=== PATIENT | female | born 1945 | race Caucasian/White ===

== ENCOUNTER 2020-04-15 14:22 | Emergency (ER) | payer MEDICARE, BC, SELFPAY ==
[2020-04-15 14:23] VITALS: BP 186/97; PULSE 76; RESP 18; TEMP 37.2; O2SAT 93; BMI 23.3
[2020-04-15 14:37] VITALS: PULSE 79; RESP 20; O2SAT 94
--- NOTE | 2020-04-15 15:08 | CT_ITS ---
WS: [id number] CT HEAD TECHNIQUE: Noncontrast CT of the head obtained from the skullbase to the vertex. CLINICAL INFORMATION: AMS COMPARISON: None. DLP: 763.[address] scans at [facility] use at least one of these dose optimization techniques: automat ed exposure control; mA and/or kV adjustment per patient size (includes targeted exams where dose is matched to clinical indication); or iterative reconstruction. FINDINGS: Small amount of serpiginous high attenuation hemorrhage overlying the left parasagittal frontal lobe measuring 7 mm. Moderate to advanced small vessel changes with moderate parenchymal volume loss. Multiple chronic lac unar infarcts involving the periventricular white matter, mcfadden radiata, bilateral caudate and thala mi. Chronic lacunar infarcts in the basal ganglia bilaterally. Chronic lacunar infarcts in the cerebe llum bilaterally. Paranasal sinuses are well aerated. 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 Subcutaneou s edema with scalp hematoma overlying the right frontal bone. No visualized fractures. CT/CT head wo con* [id number] IMPRESSION: 1. Small amount of acute high attenuation serpiginous hemorrhage overlying the parasagittal left frontal lobe. No mass effect. 2. No hydrocephalus. 3. Moderate to advanced small vessel changes moderate parenchymal volume loss. 4. Numerous chronic appearing lacunar infarcts described above. 5. Right frontal scalp hematoma. No visualized fractures. Notified Isidro Baker DO at 04/15/2020 4:10 PM.
--- NOTE | 2020-04-15 15:08 | XRR_ITS ---
PROCEDURE INFORMATION: Exam: XR Chest, 1 View Exam date and time: 04/15/2020 3:48 PM Age: 74 years old Clinical indication: Cough and dyspnea; Additional info: Dyspnea/cough TECHNIQUE: Imaging protocol: XR of the chest Views: Frontal portable upright view of the chest. COMPARISON: CR XR chest 2V* [id number] 03/31/2020 12:08 PM FINDINGS: Lungs: Lateral left mid lung zone subsegmental atelectasis. Improved bibasilar pulmonary subsegmental atelectasis. The lungs are otherwise peripherally clear bilaterally. The pulmonary vasculature is stable. Coarse bilateral central pulmonary markings with mild architectural distortion. Pleural space: No pleural effusion. No pneumothorax. Heart/Mediastinum: Stable mild cardiomegaly. Mediastinum: Stable. Bones/joints: Stable. XR/XR chest 1V portable [id number] IMPRESSION: 1. Lateral left mid lung zone subsegmental atelectasis. 2. Improved bibasilar pulmonary subsegmental atelectasis.
--- NOTE | 2020-04-15 15:08 | ECG_ITS ---
[facility] Test Date: 2020-04-15 Pat Name: Nichole Schmitt Department: Room: Gender: Female Warm In Worker: : 1945 Requested By: Isidro Chapa Order Number: [id number] Jay MD: Jenna Schilling M.D. Measurements Intervals [place] Rate: 79 P: 65 HI: 175 QRS: 34 QRSD: 77 T: 49 QT: 409 QTc: 470 Interpretive Statements SINUS RHYTHM POSSIBLE LEFT ATRIAL ENLARGEMENT [-0.1mV P WAVE IN V1/V2] SEPTAL MYOCARDIAL INFARCTION , PROBABLY OLD [40+ ms Q WAVE IN V1/V2] No previous ECG available for comparison Electronically Signed On 04-16-2020 17:12:56 CDT by Jenna Schilling M.D. [id number]
--- NOTE | 2020-04-15 15:11 | ED_ITS ---
Documented by User: Isidro Baker DO 04/19/20 07:48 HPI - Altered Mental Status General: Chief Complaint: Altered Mental Status Stated Complaint: CONFUSION Time Seen by Provider: 04/15/20 14:30 History of Present Illness: HPI narrative: 74-year-old female presents emergency room with altered mental status multiple falls. She fell on March 12 at her home after being tripped up by a leash of a dog. She was not evaluated after this. Friend is here with her in the emergency room today say that since then she has been increasingly altered had personality changes and behavioral change this morning she had bruising on the right yazdanism and the right eye which this is new from last night although does have a few shades to his of it may be couple of days old. Additionally they report that the patient has stopped all of her medications sometimes recently. She does have a power of lpn is in [place] has a nephew is not able to be here at this time. Patient is able to answer questions but most of them just yes or no she denies shortness of breath denies chest pain denies any pain anywhere. MD complaint: altered mental status and confusion Onset (ago): hour(s) Timing confirmed by: caregiver Severity: moderate Consistency of symptoms: Getting Worse Context: trauma (Fall) Associated symptoms: Deny auditory hallucinations, visual hallucinations, delusions, depression, homicidal ideation, racing thoughts or suicidal ideation Review of Systems Const: Denies: fever(s), chills, body aches, change in appetite, fatigue or malaise ENMT: Denies: throat pain, ear or mastoid pain, nasal discharge or nasal congestion Card: Denies: chest pain, edema, dyspnea on exertion or orthopnea Resp: Denies: dyspnea, productive cough or non-productive cough GI: Denies: abdominal pain, nausea, vomiting, hematemesis, coffee ground emesis, diarrhea, constipation, bloating, hematochezia or melena : Denies: flank pain, difficulty voiding, dysuria, urinary frequency or urinary urgency Skin/Breast: Denies: rash or pruritus Psych: Denies: depression, visual hallucinations, auditory hallucinations, suicidal ideation or homicidal ideation [facility] ED PFSH: Medical History (Updated 04/15/20 @ 18:36 by Cristina Fay) Hypertension Physical Exam Const: COMMON NORMALS: no acute distress GENERAL APPEARANCE: cooperative and comfortable HENMT: COMMON NORMALS: hearing grossly normal bilaterally, external ears normal, EAC's normal, TM's normal bilaterally, Normal nasal mucous membranes and turbinates present, moist oral mucous membranes and oropharynx normal NOSE: Normal nasal mucous membranes and turbinates present EXTERNAL EAR: Yes external ears normal EXTERNAL AUDITORY CANAL: EAC's normal TYMPANIC MEMBRANE: TM's normal bilaterally OTHER: Large amount of ecchymosis on the right yazdanism and the right eye no step-offs with palpation of the orbital ridge extraocular movements intact Eye: COMMON NORMALS: Equal, round and reactive pupils present, EOMs intact bilaterally, conjunctivae normal and no scleral icterus CONJUNCTIVA: Yes conjunctivae normal PUPIL: Yes Equal, round and reactive pupils present Neck/C-Spine: COMMON NORMALS: full ROM, no lymphadenopathy, supple and no JVD Lymph: LYMPHATIC: no lymphadenopathy noted and no lymphedema noted Resp: COMMON NORMALS: normal respiratory effort, No retractions, No use of accessory muscles and clear to auscultation bilaterally AUSCULTATION: clear to auscultation bilaterally Cardio: COMMON NORMALS: no JVD, regular rate, regular rhythm and No murmurs present (Cardio) RATE: regular rate RHYTHM: regular rhythm GI: COMMON NORMALS: Soft to palpation and No hepatosplenomegaly present AUSCULTATION: Yes normoactive bowel sounds PALPATION: Yes Soft to palpation, No Tenderness to palpation present (GI), No Guarding due to palpation present (GI) and Yes No hepatosplenomegaly present Extremity: COMMON NORMALS: normal to inspection, capillary refill normal, no clubbing, cyanosis or edema, no calf tenderness and no pedal edema Neuro: FABIAN COMA SCALE: document GCS findings Marianna coma scale eye opening: Spontaneous Marianna coma scale verbal response: Confused Fabian coma scale motor response: Obey commands Marianna coma scale total score: 14 Psych: THOUGHT CONTENT: No delusions Skin: COMMON NORMALS: no rashes or lesions noted GENERAL SKIN EXAM: no rashes or lesions noted Course Vital Signs: Vital signs: Vital Signs Temperature 98.9 F 04/15/20 14:23 Pulse Rate 73 04/15/20 19:00 Respiratory Rate 16 04/15/20 19:00 Blood Pressure 189/93 04/15/20 19:00 Pulse Oximetry 97 04/15/20 19:00 MDM - Altered Mental Status MDM Narrative: Medical decision making narrative: Turned over to Dr. Quispe at change of shift. Lab Data: Labs: Lab Results 04/15/20 04/15/20 04/15/20 Range/Units 15:55 15:55 15:55 WBC 9.0 (4.0-10.0) 10^3/ uL RBC 4.31 (4.1-5.3) 10^6/u L Hgb 12.8 (11.5-15.3) g/dL Hct 40.8 (37.0-47.0) % MCV 94.7 (81-99) fL MCH 29.7 (28.0-34.0) pg MCHC 31.4 (30.0-36.0) g/dL RDW 14.1 (12.1-15.1) % Plt Count 156 (130-400) 10^3/c mm MPV 11.2 H (7.4-10.4) fL Neut % (Auto) 63.8 % Lymph % (Auto) 25.6 % [place] % (Auto) 5.4 % Eos % (Auto) 4.4 % Baso % (Auto) 0.7 % Neut # (Auto) 5.73 (1.8-7.7) 10^3/u L Lymph # (Auto) 2.3 (0.8-4.8) 10^3/u L [place] # (Auto) 0.5 (0.2-0.9) 10^3/u L Eos # (Auto) 0.4 (0.0-0.8) 10^3/u L Baso # (Auto) 0.1 (0.0-0.1) 10^3/u L Nucleated RBC % (a uto) 0 % Nucleated RBCs # 0.0 /100WBC PT 11.70 L (12.1-14.9) SECO NDS INR 0.83 (0.8-1.2) APTT 35.4 (23.9-36.7) SECO NDS Sodium (136-145) mmol/L Potassium (3.5-5.1) mmol/L Chloride (98-107) mmol/L Carbon Dioxide (22-29) mmol/L Anion Gap (5-19) BUN (8-23) mg/dL Creatinine (0.5-0.9) mg/dL GFR Calculation Glucose (65-115) mg/dL Calculated Osmolal ity (285-295) mOsm/k g Lactic Acid 0.7 (0.5-2.2) mmol/L Calcium (8.5-10.5) mg/dL Magnesium (1.7-2.3) mg/dL Total Bilirubin (0.15-1.2) mg/dL AST (0-32) U/L ALT (0-33) U/L Alkaline Phosphata se (35-105) IU/L Creatine Kinase (26-192) U/L Total Protein (6.6-8.7) g/dL Albumin (3.5-5.2) g/dL Globulin (1.3-4.6) g/dL Urine Color (Yellow) Urine Appearance (CLEAR) Urine pH (5-7) Ur Specific Gravit y (1.005-1.030) Urine Protein (Negative) Urine Glucose (UA) (Normal) Urine Ketones (Negative) Urine Blood (Negative) Urine Nitrate (Negative) Urine Bilirubin (Negative) Urine Urobilinogen (Negative) mg/dL Ur Leukocyte Rita ase (Negative) Urine RBC (0-2) /hpf Urine WBC (0-5) /hpf Ur Squamous Epith Cells (0-5) /hpf Amorphous Sediment Urine Bacteria (NONE) /hpf Urine Mucus /hpf 04/15/20 04/15/20 Range/Units 15:55 18:00 WBC (4.0-10.0) 10^3/ uL RBC (4.1-5.3) 10^6/u L Hgb (11.5-15.3) g/dL Hct (37.0-47.0) % MCV (81-99) fL MCH (28.0-34.0) pg MCHC (30.0-36.0) g/dL RDW (12.1-15.1) % Plt Count (130-400) 10^3/c mm MPV (7.4-10.4) fL Neut % (Auto) % Lymph % (Auto) % [place] % (Auto) % Eos % (Auto) % Baso % (Auto) % Neut # (Auto) (1.8-7.7) 10^3/u L Lymph # (Auto) (0.8-4.8) 10^3/u L [place] # (Auto) (0.2-0.9) 10^3/u L Eos # (Auto) (0.0-0.8) 10^3/u L Baso # (Auto) (0.0-0.1) 10^3/u L Nucleated RBC % (a uto) % Nucleated RBCs # /100WBC PT (12.1-14.9) SECO NDS INR (0.8-1.2) APTT (23.9-36.7) SECO NDS Sodium 142 (136-145) mmol/L Potassium 3.9 (3.5-5.1) mmol/L Chloride 110 H (98-107) mmol/L Carbon Dioxide 23 (22-29) mmol/L Anion Gap 12.9 (5-19) BUN 36 H (8-23) mg/dL Creatinine 2.4 H (0.5-0.9) mg/dL GFR Calculation Not Reportable Glucose 99 (65-115) mg/dL Calculated Osmolal ity 302 H (285-295) mOsm/k g Lactic Acid (0.5-2.2) mmol/L Calcium 8.5 (8.5-10.5) mg/dL Magnesium 1.9 (1.7-2.3) mg/dL Total Bilirubin 0.2 (0.15-1.2) mg/dL AST 15 (0-32) U/L ALT 10 (0-33) U/L Alkaline Phosphata se 78 (35-105) IU/L Creatine Kinase 45 (26-192) U/L Total Protein 6.1 L (6.6-8.7) g/dL Albumin 3.3 L (3.5-5.2) g/dL Globulin 2.8 (1.3-4.6) g/dL Urine Color Yellow (Yellow) Urine Appearance Sl hazy (CLEAR) Urine pH 7 (5-7) Ur Specific Gravit y 1.010 (1.005-1.030) Urine Protein 3+ H (Negative) Urine Glucose (UA) Norm (Normal) Urine Ketones Negative (Negative) Urine Blood 2+ H (Negative) Urine Nitrate Negative (Negative) Urine Bilirubin Neg (Negative) Urine Urobilinogen Neg (Negative) mg/dL Ur Leukocyte Rita ase Negative (Negative) Urine RBC 0-4 H (0-2) /hpf Urine WBC 0-4 H (0-5) /hpf Ur Squamous Epith Cells 0-4 H (0-5) /hpf Amorphous Sediment Not Reportable Urine Bacteria Trace (NONE) /hpf Urine Mucus 2+ /hpf Discharge Plan Discharge Patient Disposition: Xfer Short-Term Hosp Clinical Impression: Intracranial hemorrhage Condition: Stable Referrals: [facility], [Primary Care Provider] - Discharge Date/Time: 04/15/20 19:29 Coding Level of Care Code ED [employer] for Chg Fwd Exam Comprehensive Documented by User: Cristina Fay 04/15/20 18:36 HPI - Altered Mental Status General: Chief Complaint: Altered Mental Status Stated Complaint: CONFUSION Time Seen by Provider: 04/15/20 14:30 [facility] ED PFSH: Medical History (Updated 04/15/20 @ 18:36 by Cristina Fay) Hypertension Course Vital Signs: Vital signs: Vital Signs Temperature 98.9 F 04/15/20 14:23 Pulse Rate 73 04/15/20 19:00 Respiratory Rate 16 04/15/20 19:00 Blood Pressure 189/93 04/15/20 19:00 Pulse Oximetry 97 04/15/20 19:00 MDM - Altered Mental Status MDM Narrative: Medical decision making narrative: 1814 -Case turned over to me at change of shift from Dr. Baker. Please see his note for his history, physical exam and medical decision-making notes. Patient has a small intracranial hemorrhage in the frontal region. Currently her GCS is 14 based upon my exam. Patient is mildly hypertensive I will give a dose of labetalol to keep her systolic less than 180. Dr. Baker had previously tried to transfer the patient to [facility] in [place] but hospitals were full and cannot accept. I reviewed the case with Dr. Hall out of [facility] in [facility]. She agrees accept the patient in transfer. Currently the patient is somewhat cantankerous I am going to give her 0.25 mg of Ativan to help her stay calm for the transfer. Lab Data: Attestation: I reviewed the patient's lab results. Labs: Lab Results 04/15/20 04/15/20 04/15/20 Range/Units 15:55 15:55 15:55 WBC 9.0 (4.0-10.0) 10^3/ uL RBC 4.31 (4.1-5.3) 10^6/u L Hgb 12.8 (11.5-15.3) g/dL Hct 40.8 (37.0-47.0) % MCV 94.7 (81-99) fL MCH 29.7 (28.0-34.0) pg MCHC 31.4 (30.0-36.0) g/dL RDW 14.1 (12.1-15.1) % Plt Count 156 (130-400) 10^3/c mm MPV 11.2 H (7.4-10.4) fL Neut % (Auto) 63.8 % Lymph % (Auto) 25.6 % [place] % (Auto) 5.4 % Eos % (Auto) 4.4 % Baso % (Auto) 0.7 % Neut # (Auto) 5.73 (1.8-7.7) 10^3/u L Lymph # (Auto) 2.3 (0.8-4.8) 10^3/u L [place] # (Auto) 0.5 (0.2-0.9) 10^3/u L Eos # (Auto) 0.4 (0.0-0.8) 10^3/u L Baso # (Auto) 0.1 (0.0-0.1) 10^3/u L Nucleated RBC % (a uto) 0 % Nucleated RBCs # 0.0 /100WBC PT 11.70 L (12.1-14.9) SECO NDS INR 0.83 (0.8-1.2) APTT 35.4 (23.9-36.7) SECO NDS Sodium (136-145) mmol/L Potassium (3.5-5.1) mmol/L Chloride (98-107) mmol/L Carbon Dioxide (22-29) mmol/L Anion Gap (5-19) BUN (8-23) mg/dL Creatinine (0.5-0.9) mg/dL GFR Calculation Glucose (65-115) mg/dL Calculated Osmolal ity (285-295) mOsm/k g Lactic Acid 0.7 (0.5-2.2) mmol/L Calcium (8.5-10.5) mg/dL Magnesium (1.7-2.3) mg/dL Total Bilirubin (0.15-1.2) mg/dL AST (0-32) U/L ALT (0-33) U/L Alkaline Phosphata se (35-105) IU/L Creatine Kinase (26-192) U/L Total Protein (6.6-8.7) g/dL Albumin (3.5-5.2) g/dL Globulin (1.3-4.6) g/dL Urine Color (Yellow) Urine Appearance (CLEAR) Urine pH (5-7) Ur Specific Gravit y (1.005-1.030) Urine Protein (Negative) Urine Glucose (UA) (Normal) Urine Ketones (Negative) Urine Blood (Negative) Urine Nitrate (Negative) Urine Bilirubin (Negative) Urine Urobilinogen (Negative) mg/dL Ur Leukocyte Rita ase (Negative) Urine RBC (0-2) /hpf Urine WBC (0-5) /hpf Ur Squamous Epith Cells (0-5) /hpf Amorphous Sediment Urine Bacteria (NONE) /hpf Urine Mucus /hpf 04/15/20 04/15/20 Range/Units 15:55 18:00 WBC (4.0-10.0) 10^3/ uL RBC (4.1-5.3) 10^6/u L Hgb (11.5-15.3) g/dL Hct (37.0-47.0) % MCV (81-99) fL MCH (28.0-34.0) pg MCHC (30.0-36.0) g/dL RDW (12.1-15.1) % Plt Count (130-400) 10^3/c mm MPV (7.4-10.4) fL Neut % (Auto) % Lymph % (Auto) % [place] % (Auto) % Eos % (Auto) % Baso % (Auto) % Neut # (Auto) (1.8-7.7) 10^3/u L Lymph # (Auto) (0.8-4.8) 10^3/u L [place] # (Auto) (0.2-0.9) 10^3/u L Eos # (Auto) (0.0-0.8) 10^3/u L Baso # (Auto) (0.0-0.1) 10^3/u L Nucleated RBC % (a uto) % Nucleated RBCs # /100WBC PT (12.1-14.9) SECO NDS INR (0.8-1.2) APTT (23.9-36.7) SECO NDS Sodium 142 (136-145) mmol/L Potassium 3.9 (3.5-5.1) mmol/L Chloride 110 H (98-107) mmol/L Carbon Dioxide 23 (22-29) mmol/L Anion Gap 12.9 (5-19) BUN 36 H (8-23) mg/dL Creatinine 2.4 H (0.5-0.9) mg/dL GFR Calculation Not Reportable Glucose 99 (65-115) mg/dL Calculated Osmolal ity 302 H (285-295) mOsm/k g Lactic Acid (0.5-2.2) mmol/L Calcium 8.5 (8.5-10.5) mg/dL Magnesium 1.9 (1.7-2.3) mg/dL Total Bilirubin 0.2 (0.15-1.2) mg/dL AST 15 (0-32) U/L ALT 10 (0-33) U/L Alkaline Phosphata se 78 (35-105) IU/L Creatine Kinase 45 (26-192) U/L Total Protein 6.1 L (6.6-8.7) g/dL Albumin 3.3 L (3.5-5.2) g/dL Globulin 2.8 (1.3-4.6) g/dL Urine Color Yellow (Yellow) Urine Appearance Sl hazy (CLEAR) Urine pH 7 (5-7) Ur Specific Gravit y 1.010 (1.005-1.030) Urine Protein 3+ H (Negative) Urine Glucose (UA) Norm (Normal) Urine Ketones Negative (Negative) Urine Blood 2+ H (Negative) Urine Nitrate Negative (Negative) Urine Bilirubin Neg (Negative) Urine Urobilinogen Neg (Negative) mg/dL Ur Leukocyte Rita ase Negative (Negative) Urine RBC 0-4 H (0-2) /hpf Urine WBC 0-4 H (0-5) /hpf Ur Squamous Epith Cells 0-4 H (0-5) /hpf Amorphous Sediment Not Reportable Urine Bacteria Trace (NONE) /hpf Urine Mucus 2+ /hpf Imaging Data^: CT Head: Radiologist's impression: [address] [address] [address] Scan Report Signed Patient: Nichole Schmitt Unit #: [id number] : 1945 Age/Sex: 74 / F ADM Date: 04/15/20 Loc: ER Room/Bed: Attending Dr: Ordering Provider/Ordering MD: Isidro Baker DO Date of Service: 04/15/20 Procedure(s): CT head wo con* [id number] Accession Number(s): [id number] Report Number: [id number] WS: [id number] CT HEAD TECHNIQUE: Noncontrast CT of the head obtained from the skullbase to the vertex. CLINICAL INFORMATION: AMS COMPARISON: None. DLP: 763.[address] scans at [facility] use at least one of these dose optimization techniques: automated exposure control; mA and/or kV adjustment per patient size (includes targeted exams where dose is matched to clinical indication); or iterative reconstruction. FINDINGS: Small amount of serpiginous high attenuation hemorrhage overlying the left parasagittal frontal lobe measuring 7 mm. Moderate to advanced small vessel changes with moderate parenchymal volume loss. Multiple chronic lacunar infarcts involving the periventricular white matter, mcfadden radiata, bilateral caudate and thalami. Chronic lacunar infarcts in the basal ganglia bilaterally. Chronic lacunar infarcts in the cerebellum bilaterally. Paranasal sinuses are well aerated. 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 Subcutaneous edema with scalp hematoma overlying the right frontal bone. No visualized fractures. CT/CT head wo con* [id number] IMPRESSION: 1. Small amount of acute high attenuation serpiginous hemorrhage overlying the parasagittal left frontal lobe. No mass effect. 2. No hydrocephalus. 3. Moderate to advanced small vessel changes moderate parenchymal volume loss. 4. Numerous chronic appearing lacunar infarcts described above. 5. Right frontal scalp hematoma. No visualized fractures. Notified Isidro Baker DO at 04/15/2020 4:10 PM. Dictated By: James Acuna MD Signed By: James Acuna MD Signed Date/Time: 04/15/20 1613 DD/ 1603 CXR: Radiologist's impression: [address] [address] XRay Report Signed Patient: Nichole Schmitt Unit #: [id number] : 1945 Age/Sex: 74 / F ADM Date: 04/15/20 Loc: ER Room/Bed: Attending Dr: Ordering Provider/Ordering MD: Isidro Baker DO Date of Service: 04/15/20 Procedure(s): XR chest 1V portable [id number] Accession Number(s): [id number] Report Number: [id number] PROCEDURE INFORMATION: Exam: XR Chest, 1 View Exam date and time: 04/15/2020 3:48 PM Age: 74 years old Clinical indication: Cough and dyspnea; Additional info: Dyspnea/cough TECHNIQUE: Imaging protocol: XR of the chest Views: Frontal portable upright view of the chest. COMPARISON: CR XR chest 2V* [id number] 03/31/2020 12:08 PM FINDINGS: Lungs: Lateral left mid lung zone subsegmental atelectasis. Improved bibasilar pulmonary subsegmental atelectasis. The lungs are otherwise peripherally clear bilaterally. The pulmonary vasculature is stable. Coarse bilateral central pulmonary markings with mild architectural distortion. Pleural space: No pleural effusion. No pneumothorax. Heart/Mediastinum: Stable mild cardiomegaly. Mediastinum: Stable. Bones/joints: Stable. XR/XR chest 1V portable [id number] IMPRESSION: 1. Lateral left mid lung zone subsegmental atelectasis. 2. Improved bibasilar pulmonary subsegmental atelectasis. Dictated By: Barrett Avalos MD Signed By: Barrett Avalos MD Signed Date/Time: 04/15/20 1640 DD/ 1640 EKG Data^: EKG 1: Attestation: I personally reviewed and interpreted this EKG as follows: EKG interpretation date: 04/15/20 EKG interpretation time: 15:39 Interpretation: Normal sinus rhythm at 79 beats a minute, left atrial enlargement, normal axis, no blocks, normal intervals. No acute ST or T wave changes. Discharge Plan Discharge Patient Disposition: Xfer Short-Term Hosp Clinical Impression: Intracranial hemorrhage Condition: Stable Referrals: [facility], [Primary Care Provider] - Discharge Date/Time: 04/15/20 19:29 Coding Level of Care Code ED [employer] Of [employer] for Chg Fwd Exam Comprehensive
[2020-04-15 16:07] LABS: Basophils # 0.1 10^3/uL (0.0-0.1); Basophils % 0.7 %; Eosinophils # 0.4 10^3/uL (0.0-0.8); Eosinophils % 4.4 %; Hematocrit 40.8 % (37.0-47.0); Hemoglobin 12.8 g/dL (11.5-15.3); Lymphocytes # 2.3 10^3/uL (0.8-4.8); Lymphocytes % 25.6 %; Mean Corpuscular HGB Conc 31.4 g/dL (30.0-36.0); Mean Corpuscular Hemoglobin 29.7 pg (28.0-34.0); Mean Corpuscular Volume 94.7 fL (81-99); Mean Platelet Volume 11.2 fL (7.4-10.4); Monocytes # 0.5 10^3/uL (0.2-0.9); Monocytes % 5.4 %; Neutrophils # 5.73 10^3/uL (1.8-7.7); Neutrophils % 63.8 %; Nucleated Red Blood Cells % 0 %; Platelet Count 156 10^3/cmm (130-400); Red Blood Count 4.31 10^6/uL (4.1-5.3); Red Cell Distribution Width 14.1 % (12.1-15.1)
[2020-04-15 16:22] VITALS: BP 158/109; BP 201/101; BP 202/89; PULSE 78; PULSE 80; PULSE 83
[2020-04-15 16:26] LABS: INR 0.83 (0.8-1.2)
[2020-04-15 16:27] LABS: Partial Thromboplastin Time 35.4 SECONDS (23.9-36.7)
[2020-04-15 16:32] LABS: Lactic Sepsis W/Reflex 0.7 mmol/L (0.5-2.2)
[2020-04-15 16:33] LABS: Alanine Aminotransferase 10 U/L (0-33); Albumin Level 3.3 g/dL (3.5-5.2); Alkaline Phosphatase 78 IU/L (35-105); Anion Gap 12.9 (5-19); Aspartate Amino Transferase 15 U/L (0-32); Blood Urea Nitrogen 36 mg/dL (8-23); Calcium 8.5 mg/dL (8.5-10.5); Carbon Dioxide 23 mmol/L (22-29); Chloride 110 mmol/L (98-107); Creatine Phosphokinase 45 U/L (26-192); Globulin 2.8 g/dL (1.3-4.6); Glucose 99 mg/dL (65-115); Magnesium 1.9 mg/dL (1.7-2.3); Osmolality Calculated 302 mOsm/kg (285-295); Potassium 3.9 mmol/L (3.5-5.1); Sodium 142 mmol/L (136-145); Total Bilirubin 0.2 mg/dL (0.15-1.2); Total Protein 6.1 g/dL (6.6-8.7)
[2020-04-15 16:34] VITALS: BP 158/109; PULSE 80; RESP 20; O2SAT 96
--- NOTE | 2020-04-15 16:55 | PC.NURSE ---
Patient ambulated to bathroom to obtain UA after obtaining orthostatic blood pressures. Patient ambulated with stand by assist, patient was incontinent of bowel and bladder. Patient cleaned and changed into clean disposable pants and brief. Unable to obtain a clean catch specimen due to incontinence
--- NOTE | 2020-04-15 18:15 | PC.NURSE ---
Caregiver/friend gave names and phone numbers to patients nephews Pollo Schmitt [phone] Juan Rodriguez [phone] (possibly DPOA)
[2020-04-15] MEDS: labetalol 5 mg/mL SDV 20mL 10 MG IVP (18:36)
[2020-04-15 18:43] LABS: Add Urine Microscopic? YES; Bilirubin Urine Neg (Negative); Blood Urine 2+ (Negative); Glucose Urine UA Norm (Normal); Ketones Urine Negative (Negative); Leukocyte Esterase Urine Negative (Negative); Nitrate Urine Negative (Negative); Protein Urine 3+ (Negative); Urine Appearance SL Hazy (CLEAR); Urine Color Yellow (Yellow); Urobilinogen Urine Neg (Negative); pH Urine 7 (5-7)
[2020-04-15 18:44] LABS: Add Urine Culture? No; Bacteria Urine TRACE /hpf; Mucus Urine 2+ /hpf; RBC Urine 0-4 /hpf (0-2); Squamous Epithelial Cell Urine 0-4 /hpf (0-5); WBC Urine 0-4 /hpf (0-5)
[2020-04-15] MEDS: LORazepam 2 mg/mL INJ 1 mL 1 MG IVP (18:46)
[2020-04-15 19:00] VITALS: BP 189/93; PULSE 73; RESP 16; O2SAT 97
--- NOTE | 2020-04-15 19:07 | PC.NURSE ---
Left remaining ativan/lorazepam with Emma Mancera for administration prior to transfer
== END 2020-04-15 19:29 | disposition short-term general hospital (02) ==
PROVIDERS: Family Medicine; Emergency Provider Emergency Medicine
DX: S06.309A Unspecified focal traumatic brain injury with loss of consciousness of unspecified duration, initial encounter (principal); W18.09XA Striking against other object with subsequent fall, initial encounter; I10 Essential (primary) hypertension
CPT/HCPCS: 12345; 36415; 51702; 70450; 71045; 80053; 81001; 82550; 83605; 83735; 85025; 85610; 85730; 93005; 96374; 96375; 99283; 99285; J2060; J3490